=== PATIENT | female | born 1975 | race Hispanic/Latino ===

== ENCOUNTER 2024-10-19 15:47 | Emergency (ER) | payer SELFPAY ==
--- OUTSIDE RECORDS SUMMARY | 2024-10-19 15:50 | XMS REPORT | Continuity of Care Document ---
Author Name Unknown Address [address] [place] [address] [facility] Address [address] [place] [address] Care Team Providers Care Websphere Portal Developer Name Role Phone Adan STEIN, Silke Primary Care Physician [phone] Lab, Pcp Aria Attending Clinician Unavailable Lab, [facility] Fam Pob I Attending Clinician Unavailab Judith Tellez Attending Clinician [phone] JUDITH VEGA Attending Clinician Unavailable Jeanne Finch Attending Clinician [phone] JEANNE PINEDA Attending Clinician Unavailable Doctor Unassigned, [place] Attending Clinician U yefri Gonzalez RN, Tiffanie English Attending Clinician Unavaila ADRIAN Potter Attending Clinician Unavailable Nurse, [facility] General Surgery Attending Clinician U Adrian Corona MD Attending Clinician [phone] Allergies, Adverse Reactions, Alerts Allergy Name Allergy Type Status Severity Reaction(s) Onset Date Inactive Date Treating Clinician Comments Source NO KNOWN ALLERGIE S Drug Class Active [facility] Social History Social Habit Start Date Stop Date Quantity Comments Source Exposure to SARS-CoV-2 (event) Not sure [facility] Sex Assigned At [facility] Smoking Status Start Date Stop Date Source Unknown if ever smoked [facility] Medications Ordered Medication Name Filled Medication Name Start Date Stop Date Current Medication? Ordering Clinician Indication Dosage Frequency Signature (SIG) Comments Components Source benzonatate 100 mg capsule 06-17 00:00: 00 Yes 12mg Jareth Mata Jhonny Bromfed DM 2 mg-30 mg-10 mg/5 mL oral syrup 06-17 00:00: 00 Yes 10mg/5 mL Jareth Barry metronidazo le 500 mg tablet 3 00:00: 00 Yes 1mg Jareth Barry TAKE 1 CAPSULE BY MOUTH TWICE A DAY UNTIL FINISHED - 00:00: 00 Yes Jareth Barry TAKE 1 CAPSULE TWICE DAILY UNTIL GONE. 2- 00:00: 00 03-27 00:00 :00 No 100 Jarethyudith Barry TAKE 1 CAPSULE BY MOUTH ONCE DAILY 0 08-16 00:00: 00 03-27 00:00 :00 No 4 Jareth F Jhonny TAKE 1 CAPSULE BY MOUTH EVERY DAY 0 08-16 00:00: 00 03-27 00:00 :00 No Jareth Mata Barry 1 TABLET PO BID 07-12 00:00: 00 03-27 00:00 :00 No 500 Jareth Barry TAKE 1 TABLET BY MOUTH ONCE DAILY 08-10 00:00: 00 03-27 00:00 :00 No Jareth Mata Barry Vital Signs Vital Name Observation Time Observation Value Comments S ource BP Systolic 2024-08-26 14:54:00 120 mm[Hg] Step hen F Jhonny BP Diastolic 2024-08-26 14:54:00 70 mm[Hg] Brando phen F Jhonny Weight Measured 2024-08-26 14:54:00 187.00 pounds Jareth Barry Height Measured 2024-08-26 14:54:00 63.70 inches Jareth Mata Barry Body Temperature 2024-08-26 14:54:00 98.10 degrees Jareth F Jhonny Heart Rate 2024-08-26 14:54:00 79.00 /min Gabi en F Jhonny Respiratory Rate 2024-08-26 14:54:00 18.00 /min Jareth F Jhonny BP Systolic 2024-06-17 09:57:00 127 mm[Hg] Step hen F Jhonny BP Diastolic 2024-06-17 09:57:00 80 mm[Hg] Brando phen F Jhonny Weight Measured 2024-06-17 09:57:00 188.20 pounds Jareth Barry Height Measured 2024-06-17 09:57:00 63.70 inches Jareth F Jhonny Body Temperature 2024-06-17 09:57:00 98.30 degrees Jareth F Jhonny Heart Rate 2024-06-17 09:57:00 96.00 /min Gabi en F Jhonny Respiratory Rate 2024-06-17 09:57:00 Jareth F Jhonny BP Systolic 2024-03-11 15:17:00 122 mm[Hg] Step hen F Jhonny BP Diastolic 2024-03-11 15:17:00 65 mm[Hg] Brando phen F Jhonny Weight Measured 2024-03-11 15:17:00 190.60 pounds Jareth F Jhonny Height Measured 2024-03-11 15:17:00 63.70 inches Jareth F Jhonny Body Temperature 2024-03-11 15:17:00 98.00 degrees Jareth F Jhonny Heart Rate 2024-03-11 15:17:00 68.00 /min Gabi en F Jhonny Respiratory Rate 2024-03-11 15:17:00 Jareth F Jhonny BP Systolic 2024-03-04 14:18:00 122 mm[Hg] Step hen F Jhonny BP Diastolic 2024-03-04 14:18:00 77 mm[Hg] Brando phen F Jhonny Weight Measured 2024-03-04 14:18:00 190.00 pounds Jareth F Jhonny Height Measured 2024-03-04 14:18:00 63.70 inches Jareth F Jhonny Body Temperature 2024-03-04 14:18:00 98.10 degrees Jareth F Jhonny Heart Rate 2024-03-04 14:18:00 66.00 /min Gabi en F Jhonny Respiratory Rate 2024-03-04 14:18:00 Jareth F Jhonny BP Systolic 2024-01-16 17:12:00 122 mm[Hg] Step hen F Jhonny BP Diastolic 2024-01-16 17:12:00 77 mm[Hg] Brando phen F Jhonny Weight Measured 2024-01-16 17:12:00 191.40 pounds Jareth F Jhonny Height Measured 2024-01-16 17:12:00 63.70 inches Jareth F Jhonny Body Temperature 2024-01-16 17:12:00 98.10 degrees Jareth F Jhonny Heart Rate 2024-01-16 17:12:00 66.00 /min Gabi en F Jhonny Respiratory Rate 2024-01-16 17:12:00 18.00 /min Jareth F Jhonny BP Systolic 2024-01-02 16:38:00 137 mm[Hg] Step hen F Jhonny BP Diastolic 2024-01-02 16:38:00 84 mm[Hg] Brando phen F Jhonny Weight Measured 2024-01-02 16:38:00 192.20 pounds Jareth F Jhonny Height Measured 2024-01-02 16:38:00 63.70 inches Jareth F Jhonny Body Temperature 2024-01-02 16:38:00 98.10 degrees Jareth F Jhonny Heart Rate 2024-01-02 16:38:00 80.00 /min Gabi en F Jhonny Respiratory Rate 2024-01-02 16:38:00 Jareth F Jhonny BP Systolic 2023-08-16 16:53:00 127 mm[Hg] Step hen F Jhonny BP Diastolic 2023-08-16 16:53:00 83 mm[Hg] Brando phen F Jhonny Weight Measured 2023-08-16 16:53:00 191.60 pounds Jareth F Jhonny Height Measured 2023-08-16 16:53:00 63.70 inches Jareth F Jhonny Body Temperature 2023-08-16 16:53:00 98.20 degrees Jareth F Jhonny Heart Rate 2023-08-16 16:53:00 76.00 /min Gabi en F Jhonny Respiratory Rate 2023-08-16 16:53:00 19.00 /min Jareth F Jhonny BP Systolic 2023-07-27 15:51:00 122 mm[Hg] Step hen F Jhonny BP Diastolic 2023-07-27 15:51:00 84 mm[Hg] Brando phen F Jhonny Weight Measured 2023-07-27 15:51:00 190.20 pounds Jareth F Jhonny Height Measured 2023-07-27 15:51:00 63.70 inches Jareth F Jhonny Body Temperature 2023-07-27 15:51:00 97.90 degrees Jareth F Jhonny Heart Rate 2023-07-27 15:51:00 75.00 /min Gabi en F Jhonny Respiratory Rate 2023-07-27 15:51:00 Jareth F Jhonny BP Systolic 2023-07-27 15:25:00 122 mm[Hg] Step hen F Jhonny BP Diastolic 2023-07-27 15:25:00 84 mm[Hg] Brando phen Mata Barry Weight Measured 2023-07-27 15:25:00 190.20 pounds Jareth Barry Height Measured 2023-07-27 15:25:00 63.78 inches Jareth Barry Body Temperature 2023-07-27 15:25:00 97.90 degrees Jareth aBrry Heart Rate 2023-07-27 15:25:00 75.00 /min Gabi en F Jhonny Respiratory Rate 2023-07-27 15:25:00 Jareth Barry BP Systolic 2023-07-12 17:03:00 110 mm[Hg] Step hen Mata Barry BP Diastolic 2023-07-12 17:03:00 70 mm[Hg] Brando phen Mata Barry Weight Measured 2023-07-12 17:03:00 188.00 pounds Jareth Barry Height Measured 2023-07-12 17:03:00 62.00 inches Jareth Barry Body Temperature 2023-07-12 17:03:00 97.80 degrees Jareth Barry Heart Rate 2023-07-12 17:03:00 79.00 /min Gabi en Mata Barry Respiratory Rate 2023-07-12 17:03:00 20.00 /min Jareth Barry Encounters Start Date/Time End Date/Time Encounter Type Admission Type Attending [facility] Care Department Encounter ID Source 2024-09-10 16:18:07 2024-09-10 16:18:07 Outpatient SFA [facility] [id number] Jareth Barry 2024-08-26 14:48:51 2024-08-26 14:48:51 Outpatient [facility] [id number] Jareth Barry 2024-08-26 00:00:00 2024-08-26 00:00:00 Outpatient Visit [facility] [id number] Jareth Barry 2024-06-17 09:56:22 2024-06-17 09:56:22 Outpatient SFA [facility] [id number] Jareth Barry 2024-06-17 00:00:00 2024-06-17 00:00:00 Outpatient Visit [facility] [id number] Jareth Barry 2024-03-11 15:10:40 2024-03-11 15:10:40 Outpatient SFA S[facility] [id number] Jareth Barry 2024-03-11 00:00:00 2024-03-11 00:00:00 Outpatient Visit [facility] [id number] Jareth Barry 2024-03-04 14:54:54 2024-03-04 14:54:54 Outpatient SFA SFA [id number] Jareth Barry 2024-01-16 16:59:44 2024-01-16 16:59:44 Outpatient SFA SFA 27 Jareth Barry 2024-01-12 13:16:59 2024-01-12 13:16:59 Outpatient SFA SFA 23 Jarteh Barry 2024-01-02 16:29:12 2024-01-02 16:29:12 Outpatient SFA SFA [id number] Jareth Barry 2023-08-16 16:49:52 2023-08-16 16:49:52 Outpatient SFA SFA [id number] Jareth Barry 2023-08-01 15:39:33 2023-08-01 15:39:33 Outpatient SFA SFA [id number] Jareth Barry 2023-07-27 15:14:39 2023-07-27 15:14:39 Outpatient SFA SFA [id number] Jareth Barry 2023-07-12 16:55:37 2023-07-12 16:55:37 Outpatient SFA SFA [id number] Jareth Barry 2023-01-06 16:37:42 2023-01-06 16:37:42 Outpatient SFA SFA [id number] Jareth Barry 2023-01-02 15:03:15 2023-01-02 15:03:15 Outpatient SFA SFA [id number] Jareth Barry 2020-10-14 00:00:00 2020-10-14 00:00:00 Letter (Out) Lab, Pcp Covid [facility] [address] 1.114 [id number] [facility] 2020-10-12 16:40:20 2020-10-12 17:00:20 Laboratory Only Lab, [facility] Pob Rena Vega [facility] [address] 1.114 [id number] [facility] 2020-10-12 17:00:00 2020-10-12 17:00:00 Outpatient Grant [facility] [id number] [facility] 2020-07-28 14:52:12 2020-07-28 15:12:12 Laboratory Only Lab, [facility] Omidb Jeanne Mccarthy [facility] [address] 1.114 [id number] [facility] 2020-07-28 14:40:00 2020-07-28 14:40:00 Outpatient JEANNE CONLEY [facility] [id number] [facility] 2020-07-28 00:00:00 2020-07-28 00:00:00 Letter (Out) Doctor Unassigned, [place] [facility] 1.114 [id number] [facility] 2020-03-07 00:00:00 2020-03-07 00:00:00 Telephone Tiffanie Gonzalez [facility] 1.114 [id number] [facility] 2020-03-05 15:30:00 2020-03-05 15:30:00 Outpatient ADRIAN CORONA [facility] [id number] [facility] 2020-03-05 15:08:00 2020-03-05 15:12:31 Nurse Visit Nurse, [facility] Adrian Coffey Sabas [facility] [id number] [facility] Results Test Description Test Time Test Comments Results Result Co mments Source Jareth August AustinOccult Blood, Fecal, [id number] 00:00:00* Test Item Value Reference Range Interpretation Comme nts Occult Blood, Fecal, [place] (martinez t code = 01808-2) Negative Jareth August AustinOccult Blood, Fecal, [id number] 00:00:00* Test Item Value Reference Range Interpretation Comme nts Occult Blood, Fecal, IA (martinez t code = 05662-7) Negative Jareth August AustinHEPATITIS A IgM [REFLEX]2024-01-19 00:00:00* Test Item Value Reference Range Interpretation Comme nts HEPATITIS A IgM (test code = 2728) NON-REACTIVE Jareth August AustinGC AND CHLAMYDIA AMPLIFIED, [id number] 00:00:00* Test Item Value Reference Range Interpretation Comme nts CHLAMYDIA, NAAT, THINPREP (t est code = 14937) NEGATIVE GONORRHEA, NAAT, THINPREP (t est code = 58866) NEGATIVE Jareth August AustinHIV 1/2 4TH GEN, RFLX [id number] 00:00:00* Test Item Value Reference Range Interpretation Comme nts HIV 1/2 4TH GEN, RFLX CONF ( test code = 3514) NON-REACTIVE Jareth BarryRPR REFLEX TO T. PALLIDUM - [id number] 00:00:00* Test Item Value Reference Range Interpretation Comme nts RPR (test code = 41283) NON-REACTIVE RPR TITER (test code = 3500) NOT INDIC. TITER Jareth BarryPAP TEST, THINPREP, [id number] 00:00:00* Test Item Value Reference Range Interpretation Comme nts SOURCE: (test code = 8001) Cervical/Endocervical SLIDES: (test code = 8011) 1 LMP: (test code = 8021) NOT GIVEN SPECIMEN ADEQUACY: (test code = 11207) (NOTE) INTERPRETATION: (test code = 11968) NILM/NO EPITH. ABNORMALITY;SEE BELOW BULLET SLUG CASTING MACHINE OPERATOR: (test code = 8101) KYRIE HERNÁNDEZ(ASCP)IAC LOCATION: (test code = 98308) (NOTE) CPT: (test code = 8140) (NOTE) Jareth August AustinHPV HIGH RISK WITH GENOTYPE, [id number] 00:00:00* Test Item Value Reference Range Interpretation Comme nts HPV HIGH RISK INTERP (test c ode = 46862) NEGATIVE HPV 16 (test code = 34529) NEGATIVE HPV 18 (test code = 02458) NEGATIVE HPV, HR, OTHER GENOTYPES (te st code = 92499) NEGATIVE Jareth BarryHEPATITIS PROFILE (A,B,C)2024-01-19 00:00:00* Test Item Value Reference Range Interpretation Comme nts HEPATITIS A TOTAL AB (test c ode = 2725) REACTIVE HEPATITIS B SURF AG (test co de = 2739) NON-REACTIVE HEP B CORE TOTAL AB (test co de = 2729) NON-REACTIVE HEPATITIS B SURFACE AB (test code = 2737) NON-REACTIVE HEPATITIS C ANTIBODY (test c ode = 4675) NON-REACTIVE INTERPRETATION HEPATITIS A: (test code = 2552) (NOTE) INTERPRETATION HEPATITIS B: (test code = 57819) (NOTE) INTERPRETATION HEPATITIS C: (test code = 61333) (NOTE) Jareth BarryVAGINAL PATHOGENS DNA [id number] 00:00:00* Test Item Value Reference Range Interpretation Comme nts WILLAM SPECIES (test code = 86971) NEGATIVE G. VAGINALIS (test code = 85829) POSITIVE T. VAGINALIS (test code = 29618) NEGATIVE Jareth BarryFSH + LH [id number] 00:00:00* Test Item Value Reference Range Interpretation Comme nts FOLLICLE STIM HORMONE (test code = 2700) 6.3 IU/L LUTEINIZING HORMONE (test co de = 3796) 7.6 IU/L Jareth [id number] 00:00:00* Test Item Value Reference Range Interpretation Comme nts PROLACTIN (test code = 2800) 7.1 NG/ML Jareth BarryBdbdosB-[id number] 00:00:00* Test Item Value Reference Range Interpretation Comme nts C-PEPTIDE (test code = 4832) 2.7 NG/ML Jareth BarryHEPATITIS A IgM [REFLEX]2024-01-19 00:00:00* Test Item Value Reference Range Interpretation Comme nts HEPATITIS A IgM (test code = 2728) NON-REACTIVE Jareth BarryGC AND CHLAMYDIA AMPLIFIED, [id number] 00:00:00* Test Item Value Reference Range Interpretation Comme nts CHLAMYDIA, NAAT, THINPREP (t est code = 86397) NEGATIVE GONORRHEA, NAAT, THINPREP (t est code = 27318) NEGATIVE Jareth August AustinHIV 1/2 4TH GEN, RFLX [id number] 00:00:00* Test Item Value Reference Range Interpretation Comme nts HIV 1/2 4TH GEN, RFLX CONF ( test code = 3514) NON-REACTIVE Jareth BarryRPR REFLEX TO T. PALLIDUM - [id number] 00:00:00* Test Item Value Reference Range Interpretation Comme nts RPR (test code = 18057) NON-REACTIVE RPR TITER (test code = 3500) NOT INDIC. TITER Jareth BarryPAP TEST, THINPREP, [id number] 00:00:00* Test Item Value Reference Range Interpretation Comme nts SOURCE: (test code = 8001) Cervical/Endocervical SLIDES: (test code = 8011) 1 LMP: (test code = 8021) NOT GIVEN SPECIMEN ADEQUACY: (test code = 95998) (NOTE) INTERPRETATION: (test code = 64966) NILM/NO EPITH. ABNORMALITY;SEE BELOW BULLET SLUG CASTING MACHINE OPERATOR: (test code = 8101) KYRIE HERNÁNDEZ(ASCP)IAC LOCATION: (test code = 46064) (NOTE) CPT: (test code = 8140) (NOTE) Jareth BarryHEPATITIS PROFILE (A,B,C)2024-01-19 00:00:00* Test Item Value Reference Range Interpretation Comme nts HEPATITIS A TOTAL AB (test c ode = 2725) REACTIVE HEPATITIS B SURF AG (test co de = 2739) NON-REACTIVE HEP B CORE TOTAL AB (test co de = 2729) NON-REACTIVE HEPATITIS B SURFACE AB (test code = 2737) NON-REACTIVE HEPATITIS C ANTIBODY (test c ode = 4675) NON-REACTIVE INTERPRETATION HEPATITIS A: (test code = 2552) (NOTE) INTERPRETATION HEPATITIS B: (test code = 08435) (NOTE) INTERPRETATION HEPATITIS C: (test code = 42271) (NOTE) Jareth BarryHPV HIGH RISK WITH GENOTYPE, [id number] 00:00:00* Test Item Value Reference Range Interpretation Comme amanda HPV HIGH RISK INTERP (test c ode = 62273) NEGATIVE HPV 16 (test code = 80946) NEGATIVE HPV 18 (test code = 99124) NEGATIVE HPV, HR, OTHER GENOTYPES (te st code = 34351) NEGATIVE Jareth BarryVAGINAL PATHOGENS DNA [id number] 00:00:00* Test Item Value Reference Range Interpretation Comme amanda WILLAM SPECIES (test code = 82413) NEGATIVE G. VAGINALIS (test code = 11236) POSITIVE T. VAGINALIS (test code = 49819) NEGATIVE Jareth BarryFSH + LH [id number] 00:00:00* Test Item Value Reference Range Interpretation Comme amanda FOLLICLE STIM HORMONE (test code = 2700) 6.3 IU/L LUTEINIZING HORMONE (test co de = 2776) 7.6 IU/L Jareth [id number] 00:00:00* Test Item Value Reference Range Interpretation Comme amnada PROLACTIN (test code = 2800) 7.1 NG/ML Jareth BarryNrzspeI-[id number] 00:00:00* Test Item Value Reference Range Interpretation Comme amanda C-PEPTIDE (test code = 4832) 2.7 NG/ML Jareth BarryHEPATITIS A IgM [REFLEX]2024-01-19 00:00:00* Test Item Value Reference Range Interpretation Comme amanda HEPATITIS A IgM (test code = 2728) NON-REACTIVE Jareth BarryGC AND CHLAMYDIA AMPLIFIED, [id number] 00:00:00* Test Item Value Reference Range Interpretation Comme amanda CHLAMYDIA, NAAT, THINPREP (t est code = 14704) NEGATIVE GONORRHEA, NAAT, THINPREP (t est code = 76795) NEGATIVE Jareth BarryHIV 1/2 4TH GEN, RFLX [id number] 00:00:00* Test Item Value Reference Range Interpretation Comme nts HIV 1/2 4TH GEN, RFLX CONF ( test code = 3514) NON-REACTIVE Jareth BarryPAP TEST, THINPREP, [id number] 00:00:00* Test Item Value Reference Range Interpretation Comme nts SOURCE: (test code = 8001) Cervical/Endocervical SLIDES: (test code = 8011) 1 LMP: (test code = 8021) NOT GIVEN SPECIMEN ADEQUACY: (test code = 33512) (NOTE) INTERPRETATION: (test code = 28702) NILM/NO EPITH. ABNORMALITY;SEE BELOW BULLET SLUG CASTING MACHINE OPERATOR: (test code = 8101) KYRIE HERNÁNDEZ(ASCP)IAC LOCATION: (test code = 42333) (NOTE) CPT: (test code = 8140) (NOTE) Jareth August AustinRPR REFLEX TO T. PALLIDUM - [id number] 00:00:00* Test Item Value Reference Range Interpretation Comme nts RPR (test code = 54572) NON-REACTIVE RPR TITER (test code = 3500) NOT INDIC. TITER Jareth BarryHPV HIGH RISK WITH GENOTYPE, [id number] 00:00:00* Test Item Value Reference Range Interpretation Comme nts HPV HIGH RISK INTERP (test c ode = 40855) NEGATIVE HPV 16 (test code = 59530) NEGATIVE HPV 18 (test code = 25752) NEGATIVE HPV, HR, OTHER GENOTYPES (te st code = 32570) NEGATIVE Jareth August JhonnyHEPATITIS PROFILE (A,B,C)2024-01-19 00:00:00* Test Item Value Reference Range Interpretation Comme nts HEPATITIS A TOTAL AB (test c ode = 2725) REACTIVE HEPATITIS B SURF AG (test co de = 2739) NON-REACTIVE HEP B CORE TOTAL AB (test co de = 2729) NON-REACTIVE HEPATITIS B SURFACE AB (test code = 2737) NON-REACTIVE HEPATITIS C ANTIBODY (test c ode = 1175) NON-REACTIVE INTERPRETATION HEPATITIS A: (test code = 2552) (NOTE) INTERPRETATION HEPATITIS B: (test code = 03422) (NOTE) INTERPRETATION HEPATITIS C: (test code = 20539) (NOTE) Jareth August AustinVAGINAL PATHOGENS DNA [id number] 00:00:00* Test Item Value Reference Range Interpretation Comme nts WILLAM SPECIES (test code = ) NEGATIVE G. VAGINALIS (test code = ) POSITIVE T. VAGINALIS (test code = ) NEGATIVE Jareth BarryFSH + LH [id number] 00:00:00* Test Item Value Reference Range Interpretation Comme nts FOLLICLE STIM HORMONE (test code = 2700) 6.3 IU/L LUTEINIZING HORMONE (test co de = 2776) 7.6 IU/L Jareth [id number] 00:00:00* Test Item Value Reference Range Interpretation Comme amanda PROLACTIN (test code = 2800) 7.1 NG/ML Jareth BarryVgmeofD-[id number] 00:00:00* Test Item Value Reference Range Interpretation Comme nts C-PEPTIDE (test code = 4832) 2.7 NG/ML Jareth August AustinURINALYSIS W/REFLEX [id number] 00:00:00* Test Item Value Reference Range Interpretation Comme nts COLOR (test code = 1501) YELLOW APPEARANCE (test code = 1502) CLEAR SPECIFIC GRAVITY (test code = 1503) 1.006 LEUKOCYTE ESTERASE (test cod e = 1504) 3+ NITRITE (test code = 1505) NEGATIVE pH (test code = 1506) 8.5 PROTEIN (test code = 1507) NEGATIVE GLUCOSE (test code = 1508) NEGATIVE KETONES (test code = 1509) NEGATIVE UROBILINOGEN (test code = 1510) 0.2 MG/DL BILIRUBIN (test code = 1511) NEGATIVE OCCULT BLOOD (test code = 1512) 2+ WHITE BLOOD CELLS (test code = 1513) 6-10 /HPF RED BLOOD CELLS (test code = 1514) 0-2 /HPF EPITHELIAL CELLS (test code = 66187) 0-5 /HPF BACTERIA (test code = 1515) 3+ CASTS, HYALINE (test code = 1517) NONE SEEN Jareth August AustinURINALYSIS W/REFLEX [id number] 00:00:00* Test Item Value Reference Range Interpretation Comme nts COLOR (test code = 1501) YELLOW APPEARANCE (test code = 1502) CLEAR SPECIFIC GRAVITY (test code = 1503) 1.006 LEUKOCYTE ESTERASE (test cod e = 1504) 3+ NITRITE (test code = 1505) NEGATIVE pH (test code = 1506) 8.5 PROTEIN (test code = 1507) NEGATIVE GLUCOSE (test code = 1508) NEGATIVE KETONES (test code = 1509) NEGATIVE UROBILINOGEN (test code = 1510) 0.2 MG/DL BILIRUBIN (test code = 1511) NEGATIVE OCCULT BLOOD (test code = 1512) 2+ WHITE BLOOD CELLS (test code = 1513) 6-10 /HPF RED BLOOD CELLS (test code = 1514) 0-2 /HPF EPITHELIAL CELLS (test code = 30620) 0-5 /HPF BACTERIA (test code = 1515) 3+ CASTS, HYALINE (test code = 1517) NONE SEEN Jareth August JhonnyURINALYSIS W/REFLEX [id number] 00:00:00* Test Item Value Reference Range Interpretation Comme nts COLOR (test code = 1501) YELLOW APPEARANCE (test code = 1502) CLEAR SPECIFIC GRAVITY (test code = 1503) 1.006 LEUKOCYTE ESTERASE (test cod e = 1504) 3+ NITRITE (test code = 1505) NEGATIVE pH (test code = 1506) 8.5 PROTEIN (test code = 1507) NEGATIVE GLUCOSE (test code = 1508) NEGATIVE KETONES (test code = 1509) NEGATIVE UROBILINOGEN (test code = 1510) 0.2 MG/DL BILIRUBIN (test code = 1511) NEGATIVE OCCULT BLOOD (test code = 1512) 2+ WHITE BLOOD CELLS (test code = 1513) 6-10 /HPF RED BLOOD CELLS (test code = 1514) 0-2 /HPF EPITHELIAL CELLS (test code = 21510) 0-5 /HPF BACTERIA (test code = 1515) 3+ CASTS, HYALINE (test code = 1517) NONE SEEN Jareth Mata Jhonny Notes Date/Time Note Provider Source Jareth Campuzano [facility]2024-07-29 00:00:00 Jareth Campuzano [facility]2024-04-22 00:00:00 Jareth Anuradha [facility]
--- NOTE | 2024-10-19 17:49 | RAD REPORT ---
EXAM: AP view(s) of the abdomen Abdomen 1 View (KUB) HISTORY: FB COMPARISON: None FINDINGS: Nonobstructive bowel gas pattern.. Calcified structures in the pelvis probably calcified fibroids.. No acute osseous abnormality. Other: n/a IMPRESSION: Nonobstructive bowel gas pattern. No radiopaque foreign body identified.
--- NOTE | 2024-10-19 17:52 | RAD REPORT ---
EXAM:Neck Soft Tissue HISTORY: FORIEGN BODY COMPARISON: None IMPRESSION: Suspected radiopaque foreign body in the region of the patient's pyriform sinus on the la teral view. This could be consistent with possible glass ingestion. It is not seen on the frontal view.
--- NOTE | 2024-10-19 17:52 | RAD REPORT ---
EXAM: Chest Pa And Lat (2 Views) HISTORY: FB COMPARISON: None. FINDINGS: LUNGS/PLEURA: The lungs are clear. No pleural effusions or pneumothorax. No pulmonary edema. MEDIASTINUM: The mediastinal silhouette is within normal limits. CARDIAC: The cardiac silhouette is within normal limits. UPPER ABDOMEN: No significant abnormality. BONES: No acute fracture. LINES/TUBES/OTHER: N/A IMPRESSION: No evidence of acute cardiopulmonary disease.
--- NOTE | 2024-10-19 18:15 | ER ---
Nurse's Notes [facility] Name: Marva Lucas Age: 49 yrs Sex: Female : 1975 Arrival Date: 10/19/2024 Time: 15:47 Bed 5 Private MD: Diagnosis: Foreign body in esophagus-PYRIFORM SINUS;Dysphagia-SECONDARY TO FB Presentation: 10/19 17:47 Chief complaint: Patient states: swallowed piece of glass by accident prior to arrival. ss Pt reports she feels like it is stuck in her throat. Coronavirus screen: Client denies travel out of the [place] in the last 14 days. Ebola Screen: Patient denies exposure to infectious person. Patient denies travel to an Ebola-affected area in the 21 days before illness onset. Initial Sepsis Screen: Does the patient meet any 2 criteria? No. Patient's initial sepsis screen is negative. Does the patient have a suspected source of infection? No. Patient's initial sepsis screen is negative. Risk Assessment: Do you want to hurt yourself or someone else? Patient reports no desire to harm self or others. Onset of symptoms was October 19, 2024. 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 - Infectious Disease History:: Denies. - Social history:: Smoking status: Patient denies any tobacco usage or history of. Screenin:08 [facility] ED Fall Risk Assessment (Adult) History of falling in the last 3 months, jl7 including since admission No falls in past 3 months (0 pts) Confusion or Disorientation No (0 pts) Intoxicated or Sedated No (0 pts) Impaired Gait No (0 pts) Mobility Assist Device Used No (0 pt) Altered Elimination No (0 pt) Score/Fall Risk Level 0 - 2 = Low Risk Oriented to surroundings, Maintained a safe environment. Abuse screen: Denies threats or abuse. Denies injuries from another. Nutritional screening: No deficits noted. Tuberculosis screening: No symptoms or risk factors identified. Assessment: 18:35 General: Appears in no apparent distress. uncomfortable, Behavior is calm, cooperative, jl7 appropriate for age. Pain: Complains of pain in throat Pain currently is 9 out of 10 on a pain scale. Neuro: Level of Consciousness is awake, alert, obeys commands, Oriented to person, place, time, situation. Cardiovascular: Patient's skin is warm and dry. Respiratory: Airway is patent Respiratory effort is even, unlabored, Respiratory pattern is regular, symmetrical. Derm: Skin is. Vital Signs: 17:43 BP 147 / 111; Pulse 63; Resp 14; Temp 97.9(TE); Pulse Ox 100% on R/A; Weight 83.91 kg; ss Height 5 ft. 2 in. ; Pain 8/10; 18:37 BP 138 / 70; Pulse 65; Resp 15; Pulse Ox 100% ; jl7 17:43 Body Mass Index 33.84 (83.91 kg, 157.48 cm) ss 17:43 Pain Scale: Adult ss ED Course: 15:50 Patient arrived in ED. mr 16:30 Jt Brooks MD is Attending Physician. belia 17:43 Neck Soft Tissue XRAY In Process Unspecified. EDMS 17:43 Chest Pa And Lat (2 Views) XRAY In Process Unspecified. EDMS 17:43 Abdomen 1 View (KUB) XRAY In Process Unspecified. EDMS 17:48 Triage completed. ss 17:48 Arm band placed on right wrist. ss 18:19 James Zuleta, MITCHELL is Primary Nurse. jl7 18:45 No provider procedures requiring assistance completed. Initial lab(s) drawn, by or, na sent to lab. Inserted saline lock: 20 gauge in right antecubital area, using aseptic technique. Blood collected. Flushed with 10 mL NS 18:[address] Brooks called [place] for Transfer. 1811 Dr. Tuan Joy accepted pt to [facility] ER [phone] Admin Alicia Cruz RN TC fax [phone], Called [facility] talked to Juan Alberto. 19:08 Patient has correct armband on for positive identification. Provided Education on: use jl7 of call [facility]. Pulse ox on. NIBP on. 19:10 Patient transferred, IV remains in place. intact, No redness/swelling at site. jl7 Administered Medications: 18:51 Drug: fentaNYL (PF) IVP 25 mcg IVP once Route: IVP; Site: right antecubital; 7 19:07 Follow up: Response: No adverse reaction jl7 19:00 Not Given (Duplicate Order): cefazolin1 grams IVPB once [facility] 19:06 Drug: Piperacillin-Tazobactam IVPB 3.375 grams IVPB once over 60 mins; (mix in NS 100 jl7 mL) Route: IVPB; Infused Over: 60 mins; Site: right antecubital; 19:07 Follow up: IV Status: Infusion continued upon transfer 19:07 Drug: NS 0.9% IV 500 ml 500 ml IV at 1 bolus once; to be given as a bolus over 30 jl7 minutes Volume: 500 ml; Route: IV; Rate: 1 bolus; Site: right antecubital; 19:07 Follow up: IV Status: Infusion continued upon transfer 19:07 Follow up: Response: No adverse reaction; IV Status: Infusion continued upon transfer 19:07 Drug: NS 0.9% IV 1000 ml IV at 125 ml/hr continuous Route: IV; Rate: 125 ml/hr; Site: [facility] right antecubital; 19:07 Follow up: IV Status: Infusion continued upon transfer 19:07 Drug: Ondansetron IVP 4 mg IVP once; over 2 minutes Route: IVP; Site: right antecubital;jl 19:07 Follow up: Response: No adverse reaction [facility] 19:13 Not Given (pt departedt): fentanyl (pf)25 mcg IVP once jl7 Medication: 19:08 VIS not applicable for this client. 7 Outcome: 18:14 ER care complete, transfer ordered by MD. celaya 19:12 Transferred by ground EMS to [facility], Transfer form completed. jl7 19:12 Condition: stable 19:12 Discharge instructions given to patient, Instructed on the need for transfer, Demonstrated understanding of instructions, 19:36 Patient left the ED. jl7 Signatures: Dispatcher [employer] EDMS Jt Brooks MD MD cha Pinkerton, Shawna sp Rivera, Mary, Reg Reg mr Joy Oneil, RN RN James Ponce RN RN jl7 Corrections: (The following items were deleted from the chart) 19:37 19:07 IV Status: Infusion continued upon transfer jl jl7
--- NOTE | 2024-10-19 18:15 | EDPHYS ---
Physician Documentation [facility] Name: Marva Lucas Age: 49 yrs Sex: Female : 1975 Arrival Date: 10/19/2024 Time: 15:47 Bed 5 Private MD: ED Physician Jt Brooks HPI: 10/19 18:05 This 49 yrs old Female presents to ER via Ambulatory with complaints of belia Swallowed Foreign Body, Glass. 18:05 The patient presents with sore throat, dysphagia, a foreign body sensation in the belia throat. The patient describes throat pain as constant, SHARP. Onset: The symptoms/episode began/occurred just prior to arrival. The patient presents to the emergency department with nausea, that is mild. Possible causes: SWALLOWED GLASS. The symptoms are aggravated by movement, food , The symptoms are alleviated by remaining still. Severity of symptoms: At their worst the symptoms were moderate, in the emergency department the symptoms are unchanged. Modifying factors: The symptoms are alleviated by nothing, the symptoms are aggravated by swallowing. Severity of symptoms: At their worst the symptoms were mild moderate in the emergency department the symptoms are unchanged. 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 - Infectious Disease History:: Denies. - Social history:: Smoking status: Patient denies any tobacco usage or history of. ROS: 18:05 Constitutional: Negative for fever, chills, and weight loss, Eyes: Negative for injury, belia pain, redness, and discharge, ENT: Negative for injury, pain, and discharge, Cardiovascular: Negative for chest pain, palpitations, and edema, Respiratory: Negative for shortness of breath, cough, wheezing, and pleuritic chest pain, Abdomen/GI: Negative for abdominal pain, nausea, vomiting, diarrhea, and constipation, Back: Negative for injury and pain, : Negative for injury, bleeding, discharge, and swelling, MS/Extremity: Negative for injury and deformity, Skin: Negative for injury, rash, and discoloration, Neuro: Negative for headache, weakness, numbness, tingling, and seizure, Psych: Negative for depression, anxiety, suicide ideation, homicidal ideation, and hallucinations, Allergy/Immunology: Negative for hives, rash, and allergies, Endocrine: Negative for neck swelling, polydipsia, polyuria, polyphagia, and marked weight changes, Hematologic/Lymphatic: Negative for swollen nodes, abnormal bleeding, and unusual bruising, 18:05 ENT: Positive for difficulty swallowing, sore throat, Exam: 18:05 Constitutional: This is a well developed, well nourished patient who is awake, alert, belia and in no acute distress. Head/Face: Normocephalic, atraumatic. Eyes: Pupils equal round and reactive to light, extra-ocular motions intact. Lids and lashes normal. Conjunctiva and sclera are non-icteric and not injected. Cornea within normal limits. Periorbital areas with no swelling, redness, or edema. Neck: Trachea midline, no thyromegaly or masses palpated, and no cervical lymphadenopathy. Supple, full range of motion without nuchal rigidity, or vertebral point tenderness. No Meningismus. Chest/axilla: Normal chest wall appearance and motion. Nontender with no deformity. No lesions are appreciated. Cardiovascular: Regular rate and rhythm with a normal S1 and S2. No gallops, murmurs, or rubs. Normal PMI, no JVD. No pulse deficits. Respiratory: Lungs have equal breath sounds bilaterally, clear to auscultation and percussion. No rales, rhonchi or wheezes noted. No increased work of breathing, no retractions or nasal flaring. Abdomen/GI: Soft, non-tender, with normal bowel sounds. No distension or tympany. No guarding or rebound. No evidence of tenderness throughout. Back: No spinal tenderness. No costovertebral tenderness. Full range of motion. Skin: Warm, dry with normal turgor. Normal color with no rashes, no lesions, and no evidence of cellulitis. MS/ Extremity: Pulses equal, no cyanosis. Neurovascular intact. Full, normal range of motion., bilateral aka Neuro: Awake and alert, GCS 15, oriented to person, place, time, and situation. Cranial nerves II-XII grossly intact. Motor strength 5/5 in all extremities. Sensory grossly intact. Cerebellar exam normal. Normal gait. Psych: Awake, alert, with orientation to person, place and time. Behavior, mood, and affect are within normal limits. 18:05 ENT: Posterior pharynx: no acute changes, Airway: Tonsils: Uvula: normal, Dental exam: normal, no acute changes, Vital Signs: 17:43 BP 147 / 111; Pulse 63; Resp 14; Temp 97.9(TE); Pulse Ox 100% on R/A; Weight 83.91 kg; ss Height 5 ft. 2 in. ; Pain 8/10; 18:37 BP 138 / 70; Pulse 65; Resp 15; Pulse Ox 100% ; jl7 17:43 Body Mass Index 33.84 (83.91 kg, 157.48 cm) ss 17:43 Pain Scale: Adult ss MDM: 16:30 Medical Screening Exam initiated belia 18:11 Differential diagnosis: FB IN THROAT. Data reviewed: vital signs, nurses notes, lab belia test result(s), radiologic studies, plain films. Consideration of Admission/Observation Escalation of care including admission/observation considered. I considered the following discharge prescriptions or medication management in the emergency department Medications were administered in the Emergency Department. See MAR. Independent interpretation of the following test(s) in the Emergency Department X-Ray: My interpretation is FB, GKLASS IN PYRIFORM SINUS. 10/19 18:16 Order name: CBC with Diff; Complete Time: 19: [facility] 10/19 18:16 Order name: Comprehensive Metabolic Panel [facility] 10/19 16:32 Order name: Neck Soft Tissue XRAY; Complete Time: 19: [facility] 10/19 16:32 Order name: Chest Pa And Lat (2 Views) XRAY; Complete Time: 19: [facility] 10/19 16:32 Order name: Abdomen 1 View (KUB) XRAY; Complete Time: 19: [facility] 10/19 18:16 Order name: NPO; Complete Time: 19:13 [facility] Administered Medications: 18:51 Drug: fentaNYL (PF) IVP 25 mcg IVP once Route: IVP; Site: right antecubital; 7 19:07 Follow up: Response: No adverse reaction [facility] 19:00 Not Given (Duplicate Order): cefazolin1 grams IVPB once [facility] 19:06 Drug: Piperacillin-Tazobactam IVPB 3.375 grams IVPB once over 60 mins; (mix in NS 100 jl7 mL) Route: IVPB; Infused Over: 60 mins; Site: right antecubital; 19:07 Follow up: IV Status: Infusion continued upon transfer [facility] 19:07 Drug: NS 0.9% IV 500 ml 500 ml IV at 1 bolus once; to be given as a bolus over 30 jl7 minutes Volume: 500 ml; Route: IV; Rate: 1 bolus; Site: right antecubital; 19:07 Follow up: IV Status: Infusion continued upon transfer jl 19:07 Follow up: Response: No adverse reaction; IV Status: Infusion continued upon transfer 19:07 Drug: NS 0.9% IV 1000 ml IV at 125 ml/hr continuous Route: IV; Rate: 125 ml/hr; Site: [facility] right antecubital; 19:07 Follow up: IV Status: Infusion continued upon transfer 19:07 Drug: Ondansetron IVP 4 mg IVP once; over 2 minutes Route: IVP; Site: right antecubital; 19:07 Follow up: Response: No adverse reaction 19:13 Not Given (pt departedt): fentanyl (pf)25 mcg IVP once jl7 Disposition Summary: 10/19/24 18:14 Transfer Ordered Notes: Transfer Location: [facility] Reason: Higher level of care beila Condition: Fair belia Problem: new belia Symptoms: are unchanged belia Accepting Physician: EDNA YORK(10/19/24 19:36) jl7 Diagnosis - Foreign body in esophagus - PYRIFORM SINUS belia - Dysphagia - SECONDARY TO FB belia Forms: - Medication Reconciliation Form belia - SBAR form belia Signatures: Dispatcher [employer] EDJt Coelho MD MD cha Blanchard, Shelby, RN RN James Ponce RN RN jl7 Corrections: (The following items were deleted from the chart) 16:32 16:32 Abdomen 1 View (KUB)+RAD.RAD.BRZ ordered. EDMS EDMS 18:15 18:14 TO [facility] 18:16 18:16 CBC+H.LAB.BRZ ordered. EDMS EDMS 18:16 18:16 COMPREHENSIVE METABOLIC PANEL+C.LAB.BRZ ordered. EDMS EDMS 19:36 18:15 TO [place] [id number]
[2024-10-19 18:54] LABS: Absolute Eosinophils 0.1 K/uL (0-0.5); Absolute Lymphocytes (CBC) 2.1 K/uL (0.7-4.9); Absolute Monocytes 0.5 K/uL (0.1-1.3); Absolute Neutrophil 3.5 K/uL (1.8-8.0); Basophils % 0.8 % (0-1.3); Eosinophils % 1.2 % (0-4.4); Hematocrit 39.8 % (36.0-45.0); Hemoglobin 12.8 g/dL (12.0-15.0); Lymphocytes % 33.3 % (15.3-44.8); MCH 27.7 pg (27.0-35.0); MCHC 32.2 g/dL (32.0-36.0); MCV 85.8 fL (80-100); MPV 8.7 fL (7.6-11.3); Monocytes % 8.1 % (3.3-12.3); Neutrophils % 56.6 % (41.7-73.7); Platelets 261 thou/uL (152-406); RBC Red Blood Cell Count 4.64 M/uL (3.86-4.86)
[2024-10-19] MEDS ORDERED: FENTANYL CITR 100 MCG/2 ML ONE (18:56)
[2024-10-19] MEDS ORDERED: NA CHLORIDE 0.9% 1,000 ML ONE (18:57)
[2024-10-19] MEDS ORDERED: FAMOTIDINE 20 MG/2 ML VIAL IV ONE (18:57)
[2024-10-19] MEDS ORDERED: ONDANSETRON 4 MG/2 ML VIAL ONE (18:57)
[2024-10-19] MEDS ORDERED: PIPERACIL/TAZO 3.375 GM VIAL IV ONE (18:58)
[2024-10-19] MEDS ORDERED: NA CHLORIDE 0.9% 100 ML ONE (18:58)
[2024-10-19 19:10] LABS: Albumin 3.3 g/dL (3.4-5.0); Albumin/Globulin Ratio 0.8 (1.1-1.8); Anion Gap 7.4 mEq/L (5.0-15.0); Bilirubin Total 0.2 mg/dL (0.2-1.0); Globulin 4.1 g/dL (2.3-3.5); Potassium 3.4 mEq/L (3.5-5.1); Protein, Total 7.4 g/dL (6.4-8.2)
[2024-10-19 21:08] VITALS: TEMP 97.9; O2SAT 100
[2024-10-19 21:09] VITALS: BP 138/70
== END 2024-10-19 19:36 | disposition short-term general hospital (02) ==
LOC: ER 15:47
DX: T18.198A Other foreign object in esophagus causing other injury, initial encounter (principal); R13.10 Dysphagia, unspecified
CPT/HCPCS: 36415; 70360; 71046; 74018; 80053; 85025; 96374; 96375; 99285; J2405; J2543; J3010; J7030